=== PATIENT | female | born 1980 | race Two or more races ===

== ENCOUNTER 2021-08-05 08:02 | Emergency (ER) | payer MEDICAID, OTHER ==
[~2021-08-05] VITALS: Ht 170.2 cm; Wt 102.1 kg
[2021-08-05 08:42] VITALS: BP 126/69
[2021-08-05] MEDS ORDERED: CEPH-509 PO (08:42)
== END 2021-08-05 09:24 | disposition home or self-care (01) ==
LOC: ER 08:02
DX: L03.011 Cellulitis of right finger (principal); Z79.899 Other long term (current) drug therapy
CPT/HCPCS: 29130; 73130